=== PATIENT | female | born 1950 | race Two or more races ===

== ENCOUNTER 2025-02-17 16:11 | Emergency (ER) | payer MEDICARE ==
[~2025-02-17] VITALS: Ht 172.7 cm; Wt 76.2 kg
[2025-02-17 16:19] VITALS: BP 108/74; TEMP 97.9
[2025-02-17 16:56] VITALS: O2SAT 98
== END 2025-02-17 16:57 | disposition home or self-care (01) ==
LOC: ER 16:18
DX: F41.9 Anxiety disorder, unspecified (principal); Z76.0 Encounter for issue of repeat prescription; F32.A Depression, unspecified

== ENCOUNTER 2025-03-19 21:11 | Emergency (ER) | payer MEDICARE ==
[~2025-03-19] VITALS: Ht 172.7 cm; Wt 74.8 kg
[2025-03-19 23:31] LABS: BASOPHILS % (AUTO) 0.8 % (0.0-2.0); EOSINOPHILS % (AUTO) 0.6 % (0.0-6.0); HEMATOCRIT 40 % (33-45); HEMOGLOBIN 13.8 g/dL (11.5-14.8); LYMPHOCYTES # (AUTO) 1.3 K/uL (0.8-4.8); LYMPHOCYTES % (AUTO) 23.7 % (20.0-44.0); MEAN CORPUSCULAR HEMOGLOBIN 32 PG (26.0-33.0); MEAN CORPUSCULAR HGB CONC 35 g/dl (31.0-36.0); MEAN CORPUSCULAR VOLUME 93 fL (82-100); MONOCYTES # (AUTO) 0.5 K/uL (0.1-1.30); NEUTROPHILS # (AUTO) 3.5 K/uL (1.8-8.9); NEUTROPHILS % (AUTO) 65.9 % (43.0-81.0); PLATELET COUNT (AUTO) 254 K/uL (150-450); RED BLOOD CELL COUNT(AUTO) 4.29 MIL/uL (4.0-5.2); RED CELL DISTRIBUTION WIDTH 12.6 % (11.5-15.0); WHITE BLOOD COUNT (AUTO) 5.4 K/uL (4.3-11.0)
[2025-03-19 23:38] LABS: CALCIUM, SERUM 9.6 mg/dL (8.5-10.1); CARBON DIOXIDE 24 mmol/L (21-32); CHLORIDE 101 mmol/L (98-107); CREATININE 0.6 mg/dL (0.6-1.3); GLUCOSE 112 mg/dL (74-106); POTASSIUM 3.3 mmol/L (3.5-5.1); SODIUM SERUM 136 mmol/L (136-145); UREA NITROGEN, BLOOD 9 mg/dL (7-18)
[2025-03-19 23:40] LABS: ALANINE AMINOTRANSFERASE 18 U/L (12-78); ALBUMIN 3.6 g/dL (3.4-5.0); ALCOHOL, BLOOD < 3 mg/dL (0-10); ALKALINE PHOSPHATASE 86 U/L (46-116); ASPARTATE AMINOTRANSFERASE 24 U/L (15-37); BILIRUBIN,TOTAL 0.7 mg/dL (0.2-1.0); TOTAL PROTEIN, SERUM 7.2 g/dL (6.4-8.2)
[2025-03-19 23:41] LABS: ACETAMINOPHEN <10 ug/ml (10-30); SALICYLATE < 0.2 mg/dL (2.8-20.0); SERUM AMMONIA 4 umol/L (11-32)
[2025-03-19 23:46] LABS: APPEARANCE,URINE CLEAR (CLEAR); BILIRUBIN,URINE NEGATIVE (NEGATIVE); BLOOD, URINE TRACE-INTA Ery/uL (NEGATIVE); COLOR,URINE YELLOW (YELLOW); KETONES,URINE 1+ mg/dL (NEGATIVE); LEUKOCYTE ESTERASE ,URINE NEGATIVE (NEGATIVE); NITRITE, URINE NEGATIVE (NEGATIVE); PROTEIN,URINE NEGATIVE (NEGATIVE); UGLUCOSE NEGATIVE (NEGATIVE); UROBILINOGEN,URINE 0.2 EU/dL (0.2)
[2025-03-20 00:04] LABS: AMPHETAMINE, URINE NEGATIVE (NEGATIVE); BARBITURATE, URINE NEGATIVE (NEGATIVE); BENZODIAZEPINE, URINE NEGATIVE (NEGATIVE); CANNABINOID, URINE NEGATIVE (NEGATIVE); COCCAINE, URINE NEGATIVE (NEGATIVE); OPIATE, URINE NEGATIVE (NEGATIVE); PHENCYCLIDINE SCREEN,URINE NEGATIVE (NEGATIVE)
[2025-03-20 00:28] LABS: ADD URINE CULTURE NO; BACTERIA,URINE Few /HPF (None Seen); SQUAMOUS EPITHELIAL CELL,UR Few /HPF (None Seen)
[2025-03-20 04:30] VITALS: BP 126/80; TEMP 97.8; O2SAT 98
[2025-03-20] MEDS ORDERED: NITR100C6 PO (05:38)
[2025-03-20] MEDS ORDERED: POTASSIUM CHLORIDE 10 MEQ TABLET.SA ONE (06:17)
[2025-03-20] MEDS ORDERED: LORAZEPAM 0.5 MG TABLET ONE (06:17)
[2025-03-20] MEDS: POTASSIUM CHLORIDE 10 MEQ TABLET.SA PO ONE (06:22)
[2025-03-20] MEDS: LORAZEPAM 1 MG TABLET PO ONE (06:22)
== END 2025-03-20 09:05 | disposition home or self-care (01) ==
LOC: ER 21:14
DX: F41.8 Other specified anxiety disorders (principal); Z20.822 Contact with and (suspected) exposure to COVID-19; Z79.899 Other long term (current) drug therapy
CPT/HCPCS: 36415; 80053-TC; 81001; 82140-TC; 85025-TC; G0480